=== PATIENT | female | born 1955 | race Caucasian/White ===

== ENCOUNTER 2017-11-23 09:23 | Day surgery (SDC) | payer BC, MEDICARE ==
[~2017-11-23 09:23] MED LIST: Lactated Ringers 1,000 ML IV SCH; Sodium Chloride 0.9% 10 ML Syringe FLUSH PRN; Sodium Chloride 0.9% 2.5 ML Syringe FLUSH PRN
--- NOTE | 2017-11-23 10:11 | PCM.PREANE ---
Preanesthetic Assessment - Anesthesia/Transfusion/Family Hx Anesthesia History: Prior Anesthesia Without Reaction Family History of Anesthesia Reaction: No Transfusion History: Unknown Intubation History: Unknown - Review of Systems General: No Symptoms Pulmonary: No Symptoms Cardiovascular: No Symptoms Gastrointestinal: No Symptoms Neurological: No Symptoms Other: Reports: None - Physical Assessment Height: 1.61 m Weight: 122.47 kg ASA Class: 3 Mental Status: Alert & Oriented x3 Airway Class: Mallampati = 3 Dentition: Reports: Normal Dentition Thyro-Mental Finger Breadths: 3 Mouth Opening Finger Breadths: 2 ROM/Head Extension: Limited/Partial Lungs: Clear to Auscultation, Normal Respiratory Effort Cardiovascular: Regular Rate, Regular Rhythm - Allergies Allergies/Adverse Reactions: Allergies Allergy/AdvReac Type Severity Reaction Status Date / Time crab Allergy Hives Verified 11/18/17 12:18 - Blood Blood Available: No - Anesthesia Plan Pre-Op Medication Ordered: None - Acknowledgements Anesthesia Type Planned: General Anesthesia Pt an Appropriate Candidate for the Planned Anesthesia: Yes Alternatives and Risks of Anesthesia Discussed w Pt/Guardian: Yes Pt/Guardian Understands and Agrees with Anesthesia Plan: Yes PreAnesthesia Questionnaire HEENT History: Reports: Other (See Below) Other HEENT History: wears glasses Respiratory History: Reports: Asthma, Sleep Apnea Other Respiratory History: CPAP Genitourinary History: Reports: Other (See Below) Other Genitourinary History: hx pyleonephritis [employer] History: Reports: LMP (Approximate): Menopausal Musculoskeletal History: Reports: Osteoarthritis Other Musculoskeletal History: avascular neurcrosis rt talus Endocrine/Metabolic History: Reports: Obesity/BMI 30+ (BMI 47.1= morbid obesity) Hematologic History: Reports: Other (See Below) Other Hematologic History: blood transfusion unknown, "thinks may have had one" - Past Surgical History Head Surgeries/Procedures: Reports: None HEENT Surgical History: Reports: Naso-Sinus Surgery Female Surgical History: Reports: Breast Biopsy, Section (x2), Other (See Below) Other Female Surgeries/Procedures: hx recto/vaginal fistula repair x3 Musculoskeletal Surgical History: Reports: Hip Replacement Other Musculoskeletal Surgeries/Procedures:: hx left hip replacement Oncologic Surgical History: Reports: Biopsy of Breast (left) - SUBSTANCE USE Smoking Status *Q: Never Smoker Recreational Drug Use History: No - HOME MEDS Home Medications: Home Meds Albuterol [Proventil] 3 ml NEB ASDIRECTED PRN 11/18/17 [History] Albuterol [Ventolin HFA] 2 puff INH ASDIRECTED PRN 11/18/17 [History] Fluticasone/Salmeterol [Advair 500-50] 1 puff INH BID 11/18/17 [History] Multivitamin [Multivitamins] 1 tab PO DAILY 11/18/17 [History] - CURRENT (IN HOUSE) MEDS Current Meds: Current Medications Lactated Ringer's (Ringers, Lactated) 1,000 mls @ 125 mls/hr IV ASDIRECTED [facility] Last Admin: 11/23/17 10:03 Dose: 125 mls/hr Sodium Chloride (Saline Flush) 10 ml FLUSH ASDIRECTED PRN PRN Reason: Keep Vein Open Sodium Chloride (Saline Flush) 2.5 ml FLUSH ASDIRECTED PRN PRN Reason: Keep Vein Open
[2017-11-23] MEDS ORDERED: Propofol 200 MG/20 ML SDV ONE (10:16)
[2017-11-23] MEDS ORDERED: Midazolam 1 MG/ML 2 ML SDV ONE (10:17)
[2017-11-23] MEDS ORDERED: fentaNYL 100 MCG/2 ML SDV ONE (10:17)
[2017-11-23] MEDS ORDERED: Ondansetron 4 MG/2 ML SDV ONE (10:18)
[2017-11-23] MEDS ORDERED: Dexamethasone 4 MG/ML 5 ML MDV ONE (10:18)
[2017-11-23] MEDS ORDERED: Succinylcholine/Normal Saline 200 MG/10 ML Syringe ONE (10:30)
[2017-11-23] MEDS ORDERED: Rocuronium 10 MG/ML 10 ML Syringe ONE (10:30)
[2017-11-23] MEDS ORDERED: fentaNYL 100 MCG/2 ML SDV IVPUSH PRN (11:30)
[2017-11-23] MEDS ORDERED: ePHEDrine 50 MG/ML SDV ONE (11:57)
[2017-11-23] MEDS ORDERED: Albuterol/Ipratropium 3.0-0.5 MG/3 ML Neb Soln NEB ONE ×3 (13:01→15:38)
--- NOTE | 2017-11-23 13:02 | PCM.OPNOTE ---
- General Post-Op/Procedure Note Date of Surgery/Procedure: 11/23/17 Operative Procedure(s): Operative hysteroscopy/polypectomy x 2/dilation and curettage/pap smear Findings: 2 small cornual polyps, one along left side, the other in the right ostia-- otherwise, thin atrophic endometrium Pre Op Diagnosis: Postmenopausal bleeding Post-Op Diagnosis: Same Anesthesia Technique: General ET Tube Primary Surgeon: Milagro Fuentes Pathology: polyp x 2, endometrial curretings, pap smear Fluid Replacement, Intraop: 1,000 (fluid deficit hysteroscope ~2000 mL) EBL in mLs: 15 Complications: none known Condition: Good Free Text/Narrative:: Dictation [id number]
--- NOTE | 2017-11-23 13:31 | PCM.POSTAN ---
POST ANESTHESIA ASSESSMENT - MENTAL STATUS Mental Status: Alert, Oriented - RESPIRATORY Respiratory Status: Respiratory Rate WNL, Airway Patent, O2 Saturation Stable, Supplemental Oxygen - CARDIOVASCULAR CV Status: Pulse Rate WNL, Blood Pressure Stable - GASTROINTESTINAL GI Status: No Symptoms - PAIN Pain Score: 6 - POST OP HYDRATION Hydration Status: Adequate & Stable - OBSERVATIONS Free Text/Narrative:: no anesthesia problems
--- NOTE | 2017-11-23 18:00 | PCM48HPAN ---
Post Anesthesia Note - EVALUATION WITHIN 48HRS OF ANESTHETIC Vital Signs in Normal Range: No (sats decrease with activity. ) Patient Participated in Evaluation: Yes Respiratory Function Stable: No (on Bipap and o2 to maintain sats) Airway Patent: Yes Cardiovascular Function Stable: Yes Hydration Status Stable: Yes Pain Control Satisfactory: Yes Nausea and Vomiting Control Satisfactory: Yes Mental Status Recovered: Yes Resp Rate: 22 - COMMENTS/OBSERVATIONS Free Text/Narrative:: Dr. Fuentes updated. Going to floor for continued care and hospitalist will be consulted.
[2017-11-23] MEDS ORDERED: Albuterol/Ipratropium 3.0-0.5 MG/3 ML Neb Soln NEB PRN (19:23)
--- NOTE | 2017-11-23 19:40 | PCM.CONS ---
H&P History of Present Illness - General Date of Service: 11/23/17 Admit Problem/Dx: Admission Diagnosis/Problem Admission Diagnosis/Problem Postmenopausal bleeding Source of Information: Patient History Limitations: Reports: No Limitations - History of Present Illness Initial Comments - Free Text/Narative: This is a 62-year-old female who is under the care of Dr. Faria [employer] who had a hysteroscopic today and was found to be desaturating subsequent to the procedure. We have been consult that secondary to her desaturations. Patient has a significant past medical history of asthma for which she is on Advair 500- 50 twice a day along with Ventolin and albuterol nebulizer. Patient also states that she feels all right right now and does not feel like she is is in any sort of respiratory compromise/acute asthma exacerbation. However she is on 2 L of O2 saturating 90-92%. Patient states that about 2 weeks prior to her got sick with similar flulike symptoms including myalgia, elevated fevers and chills, cough and congestion and she also developed similar symptoms which resolved about a week and a half ago however she still has some of the post viral issues. She did not inform anybody of her viral illness nor did she get that assessed. Presently the patient does not complain of any fevers, chills, nausea, vomiting , shortness of breath. - Related Data Allergies/Adverse Reactions: Allergies Allergy/AdvReac Type Severity Reaction Status Date / Time crab Allergy Hives Verified 11/18/17 12:18 Home Medications: Home Meds Albuterol [Proventil] 3 ml NEB ASDIRECTED PRN 11/18/17 [History] Albuterol [Ventolin HFA] 2 puff INH ASDIRECTED PRN 11/18/17 [History] Fluticasone/Salmeterol [Advair 500-50] 1 puff INH BID 11/18/17 [History] Multivitamin [Multivitamins] 1 tab PO DAILY 11/18/17 [History] Past Medical History HEENT History: Reports: Other (See Below) Other HEENT History: wears glasses Respiratory History: Reports: Asthma, Sleep Apnea Other Respiratory History: CPAP Genitourinary History: Reports: Other (See Below) Other Genitourinary History: hx pyleonephritis [employer] History: Reports: Musculoskeletal History: Reports: Osteoarthritis Other Musculoskeletal History: avascular neurcrosis rt talus Endocrine/Metabolic History: Reports: Obesity/BMI 30+ (BMI 47.1= morbid obesity) Hematologic History: Reports: Other (See Below) Other Hematologic History: blood transfusion unknown, "thinks may have had one" - Past Surgical History Head Surgeries/Procedures: Reports: None HEENT Surgical History: Reports: Naso-Sinus Surgery Female Surgical History: Reports: Breast Biopsy, Section (x2), Other (See Below) Other Female Surgeries/Procedures: hx recto/vaginal fistula repair x3 Musculoskeletal Surgical History: Reports: Hip Replacement Other Musculoskeletal Surgeries/Procedures:: hx left hip replacement Oncologic Surgical History: Reports: Biopsy of Breast (left) Social & Family History - Tobacco Use Smoking Status *Q: Never Smoker - Recreational Drug Use Recreational Drug Use: No H&P Review of Systems - Review of Systems: Review Of Systems: ROS reveals no pertinent complaints other than HPI. Exam - Exam Exam: See Below - Vital Signs Vital Signs: Last Vital Signs Temp 36.3 C 11/23/17 13:30 Pulse 94 11/23/17 15:00 Resp 22 H 11/23/17 18:00 BP 144/74 H 11/23/17 15:00 Pulse Ox 91 L 11/23/17 15:00 Weight: 122.47 kg - Exam Quality Assessment: Supplemental Oxygen General: Alert, Oriented, Cooperative HEENT: Conjunctiva Clear Neck: Supple, Trachea Midline Lungs: Wheezing Cardiovascular: Regular Rate, Regular Rhythm GI/Abdominal Exam: Normal Bowel Sounds - Patient Data Lab Results Last 24 hrs: Laboratory Results - last 24 hr 11/23/17 Range/Units 10:05 WBC 7.35 (4.0-11.0) K/uL RBC 4.63 (4.30-5.90) M/uL Hgb 14.5 (12.0-16.0) g/dL Hct 44.2 (36.0-46.0) % MCV 95.5 (80.0-98.0) fL MCH 31.3 (27.0-32.0) pg MCHC 32.8 (31.0-37.0) g/dL RDW Std Deviation 48.5 (28.0-62.0) fl RDW Coeff of Rose Mary 14 (11.0-15.0) % Plt Count 232 (150-400) K/uL MPV 9.70 (7.40-12.00) fL Nucleated RBC % 0.0 /100WBC Nucleated RBCs # 0 K/uL Result Diagrams: 11/23/17 10:05 Consult PN Assessment/Plan Procedures: Procedures COMP SCREEN MAMMOGRAM ADD-ON (02/05/15) OFFICE/OUTPATIENT VISIT EST (02/05/15) OFFICE/OUTPATIENT VISIT EST (01/31/15) X-RAY EXAM OF ANKLE (07/24/16) Problem List Initiated/Reviewed/Updated: Yes My Orders Last 24 Hours: My Active Orders 11/23/17 19:23 Albuterol/Ipratropium [DuoNeb 3.0-0.5 MG/3 ML] 3 ml NEB Q4HRRT PRN 11/23/17 19:28 Chest 1V Frontal [CR] Routine 11/23/17 19:31 RT Aerosol Therapy [RC] ASDIRECTED 11/23/17 21:00 Fluticasone/Salmeterol [Advair Diskus 500-50] 1 puff INH BID Requesting Provider: Dr. Chhaya Fuentes Date Consult Requested: 11/23/17 Reason for Consult: Oxygen desaturation asthma assessment Patient History Reviewed: Yes Admission H&P Reviewed: Yes Consult Result/Summary:: Based on the patient's current respiratory status, the fact that she is on 2 years of oxygen saturating 90-92% and her recent viral illness 2 days prior we shall be getting a chest x-ray just to rule out any acute respiratory process, putting the patient on duo nebs every 4 hours when necessary for wheezing, restarted the patient's home Advair. We shall discuss with Dr. Fuentes as far as the need for systemic steroids and its possible complication with the healing process of the procedure the patient just started. Shall continue to follow and assess the patient's respiratory status.
[2017-11-23] MEDS: Fluticasone/Salmeterol 500-50 MCG Inhalation Powder 14/Diskus INH SCH (20:17)
[2017-11-23 20:20] LABS: CHLORIDE,CL 107 mmol/L (98-110); SODIUM,NA 140 mmol/L (136-146)
[2017-11-23] MEDS ORDERED: predniSONE 20 MG Tab PO ONE (21:00)
[2017-11-24] MEDS: Fluticasone/Salmeterol 500-50 MCG Inhalation Powder 14/Diskus INH SCH (06:08)
--- NOTE | 2017-11-24 08:12 | PCM.SURGPN ---
- General Info Date of Service: 11/24/17 POD#: 1 Functional Status: Reports: Pain Controlled, Tolerating Diet, Urinating - Review of Systems General: Denies: Fever HEENT: Reports: No Symptoms Pulmonary: Reports: Cough. Denies: Pleuritic Chest Pain Cardiovascular: Denies: Chest Pain, Palpitations Gastrointestinal: Denies: Abdominal Pain, Nausea Genitourinary: Denies: Flank Pain Musculoskeletal: Reports: No Symptoms Skin: Reports: No Symptoms Neurological: Reports: No Symptoms Psychiatric: Reports: No Symptoms - Patient Data Vitals - Most Recent: Last Vital Signs Temp 36.3 C 11/24/17 05:00 Pulse 82 11/24/17 05:00 Resp 20 11/24/17 05:00 BP 128/68 11/24/17 05:00 Pulse Ox 92 L 11/24/17 05:00 Weight - Most Recent: 122.47 kg I&O - Last 24 Hours: Intake & Output 11/23/17 11/24/17 11/24/17 22:59 06:59 14:59 Intake Total 600 1150 Output Total 2000 Balance 600 -850 Lab Results Last 24 Hrs: Laboratory Results - last 24 hr 11/23/17 11/23/17 Range/Units 10:05 19:50 WBC 7.35 (4.0-11.0) K/uL RBC 4.63 (4.30-5.90) M/uL Hgb 14.5 (12.0-16.0) g/dL Hct 44.2 (36.0-46.0) % MCV 95.5 (80.0-98.0) fL MCH 31.3 (27.0-32.0) pg MCHC 32.8 (31.0-37.0) g/dL RDW Std Deviation 48.5 (28.0-62.0) fl RDW Coeff of Rose Mary 14 (11.0-15.0) % Plt Count 232 (150-400) K/uL MPV 9.70 (7.40-12.00) fL Nucleated RBC % 0.0 /100WBC Nucleated RBCs # 0 K/uL Sodium 140 (136-146) mmol/L Potassium 4.3 (3.5-5.1) mmol/L Chloride 107 (98-110) mmol/L Carbon Dioxide 24 (21-31) mmol/L BUN 10 (6.0-23.0) mg/dL Creatinine 0.7 (0.6-1.5) mg/dL Est Cr Clr Drug Dosing 71.35 mL/min Estimated GFR (MDRD) > 60.0 ml/min Glucose 140 H (60-110) mg/dL Calcium 8.8 (8.8-10.8) mg/dL Med Orders - Current: Current Medications Albuterol/Ipratropium (Duoneb 3.0-0.5 Mg/3 Ml) 3 ml NEB Q4HRRT PRN PRN Reason: Wheezing Fentanyl (Sublimaze) 50 mcg IVPUSH Q5M PRN PRN Reason: Pain (moderate 4-6) Stop: 11/24/17 14:00 Lactated Ringer's (Ringers, Lactated) 1,000 mls @ 125 mls/hr IV ASDIRECTED [facility] Last Admin: 11/23/17 10:03 Dose: 125 mls/hr Fluticasone/Salmeterol (Advair Diskus 500-50) 0 puff INH BIDRT [facility] Last Admin: 11/24/17 06:08 Dose: 1 puff Sodium Chloride (Saline Flush) 10 ml FLUSH ASDIRECTED PRN PRN Reason: Keep Vein Open Sodium Chloride (Saline Flush) 2.5 ml FLUSH ASDIRECTED PRN PRN Reason: Keep Vein Open Discontinued Medications Albuterol/Ipratropium (Duoneb 3.0-0.5 Mg/3 Ml) 3 ml NEB ONETIME ONE Stop: 11/23/17 13:02 Last Admin: 11/23/17 13:11 Dose: 3 ml Albuterol/Ipratropium (Duoneb 3.0-0.5 Mg/3 Ml) 3 ml NEB ONETIME ONE Stop: 11/23/17 14:18 Last Admin: 11/23/17 14:34 Dose: 3 ml Albuterol/Ipratropium (Duoneb 3.0-0.5 Mg/3 Ml) 3 ml NEB ONETIME ONE Stop: 11/23/17 15:39 Last Admin: 11/23/17 15:44 Dose: 3 ml Dexamethasone (Dexamethasone) Confirm Administered Dose 20 mg .ROUTE .STK-MED ONE Stop: 11/23/17 10:19 Ephedrine Sulfate (Ephedrine Sulfate) Confirm Administered Dose 50 mg .ROUTE .STK-MED ONE Stop: 11/23/17 11:58 Fentanyl (Sublimaze) Confirm Administered Dose 100 mcg .ROUTE .STK-MED ONE Stop: 11/23/17 10:18 Lidocaine HCl (Xylocaine-Mpf 1%) Confirm Administered Dose 5 ml .ROUTE .STK-MED ONE Stop: 11/23/17 10:19 Midazolam HCl (Versed 1 Mg/Ml) Confirm Administered Dose 2 mg .ROUTE .STK-MED ONE Stop: 11/23/17 10:18 Ondansetron HCl (Zofran) Confirm Administered Dose 4 mg .ROUTE .STK-MED ONE Stop: 11/23/17 10:19 Prednisone (Prednisone) 40 mg PO ONETIME ONE Stop: 11/23/17 21:01 Last Admin: 11/23/17 21:22 Dose: 40 mg Propofol (Diprivan 20 Ml) Confirm Administered Dose 200 mg .ROUTE .STK-MED ONE Stop: 11/23/17 10:17 Rocuronium Central (Zemuron) Confirm Administered Dose 100 mg .ROUTE .STK-MED ONE Stop: 11/23/17 10:31 Succinylcholine Chloride (Succinylcholine In Ns Pf) Confirm Administered Dose 200 mg .ROUTE .STK-MED ONE Stop: 11/23/17 10:31 - Exam General: Alert Lungs: Wheezing Cardiovascular: Regular Rate, Regular Rhythm GI/Abdominal Exam: Normal Bowel Sounds, Soft Extremities: No: Amy's Sign - Problem List & Annotations (1) Postmenopausal bleeding SNOMED Code(s): 82833988 Code(s): N95.0 - POSTMENOPAUSAL BLEEDING Status: Acute Current Visit: Yes - Problem List Review Problem List Initiated/Reviewed/Updated: Yes - My Orders Last 24 Hours: Active Orders 24 hr Category Date Time Status Notify Provider Consults [RC] ASDIRECTED Care 11/23/17 18:07 Active RT Aerosol Therapy [RC] ASDIRECTED Care 11/23/17 19:31 Active Ready for Discharge [RC] PER UNIT ROUTINE Care 11/23/17 12:54 Active Consult to Physician [CONS] Routine Cons 11/23/17 18:06 Active Regular Diet [DIET] Diet 11/24/17 Breakfast Active Chest 1V Frontal [CR] Routine Exams 11/23/17 19:28 Taken Albuterol/Ipratropium [DuoNeb 3.0-0.5 MG/3 ML] Med 11/23/17 19:23 Active 3 ml NEB Q4HRRT PRN Fluticasone/Salmeterol [Advair Diskus 500-50] Med 11/23/17 21:00 Active 0 puff INH BIDRT fentaNYL [Sublimaze] Med 11/23/17 11:30 Active 50 mcg IVPUSH Q5M PRN Medication Orders Albuterol/Ipratropium (Duoneb 3.0-0.5 Mg/3 Ml) 3 ml NEB Q4HRRT PRN PRN Reason: Wheezing Fentanyl (Sublimaze) 50 mcg IVPUSH Q5M PRN PRN Reason: Pain (moderate 4-6) Stop: 11/24/17 14:00 Lactated Ringer's (Ringers, Lactated) 1,000 mls @ 125 mls/hr IV ASDIRECTED [facility] Last Admin: 11/23/17 10:03 Dose: 125 mls/hr Fluticasone/Salmeterol (Advair Diskus 500-50) 0 puff INH BIDRT [facility] Last Admin: 11/24/17 06:08 Dose: 1 puff Admin: 11/23/17 20:17 Dose: 1 puff Sodium Chloride (Saline Flush) 10 ml FLUSH ASDIRECTED PRN PRN Reason: Keep Vein Open Sodium Chloride (Saline Flush) 2.5 ml FLUSH ASDIRECTED PRN PRN Reason: Keep Vein Open - Assessment Assessment (Free Text/Narrative):: POD 1 status post hysteroscopy/polypectomy Post operative respiratory issues - Plan Plan (Free Text/Narrative):: Given patient's relative hypoxemia, and recent general anesthesia--felt it was safest to monitor through the night on CPAP. Dr Gomez is also consulting and managing her respiratory findings. Patient felt she rested well. She is feeling well this morning. She denies abdominal pain, vaginal bleeding is scant. Explained intraop findings. She is doing well from a hysteroscopy standpoint. Will await Dr Gomez's disposition for today, am anticipating discharge later.
[2017-11-24] MEDS ORDERED: Albuterol 8 GM Inhaler INH PRN (08:26)
[2017-11-24] MEDS ORDERED: Multivitamins with Iron/Calcium/Folic Acid/Minerals Tab PO SCH (09:00)
--- NOTE | 2017-11-24 10:22 | PCM.CONSN ---
- General Info Date of Service: 11/24/17 Admission Dx/Problem (Free Text): Admission Diagnosis/Problem Admission Diagnosis/Problem Postmenopausal bleeding. asthma Subjective Update: Martha sánchez in the chair eating breakfast, reports she is doing well this morning. She is currently on RA sating mid 90s and denies chest pain or SOB. Has normal SOB with ambulation but is feeling well and asking about discharge home. Functional Status: Reports: Pain Controlled, Tolerating Diet, Ambulating, Urinating - Review of Systems HEENT: Reports: No Symptoms. Denies: Headaches, Sore Throat, Visual Changes Pulmonary: Reports: Wheezing (intermittently, but at baseline. No more than normal). Denies: Shortness of Breath, Cough, Sputum Cardiovascular: Reports: No Symptoms. Denies: Chest Pain, Palpitations Gastrointestinal: Reports: No Symptoms. Denies: Abdominal Pain, Nausea, Vomiting Neurological: Reports: No Symptoms. Denies: Confusion Psychiatric: Reports: No Symptoms. Denies: Confusion - Patient Data Vitals - Most Recent: Last Vital Signs Temp 98.1 F 11/24/17 08:00 Pulse 92 11/24/17 08:00 Resp 18 11/24/17 08:00 BP 116/57 L 11/24/17 08:00 Pulse Ox 93 L 11/24/17 08:00 Weight - Most Recent: 122.47 kg I&O - Last 24 Hours: Intake & Output 11/23/17 11/24/17 11/24/17 22:59 06:59 14:59 Intake Total 600 1150 Output Total 2000 Balance 600 -850 Lab Results Last 24 Hours: Laboratory Results - last 24 hr 11/23/17 Range/Units 19:50 Sodium 140 (136-146) mmol/L Potassium 4.3 (3.5-5.1) mmol/L Chloride 107 (98-110) mmol/L Carbon Dioxide 24 (21-31) mmol/L BUN 10 (6.0-23.0) mg/dL Creatinine 0.7 (0.6-1.5) mg/dL Est Cr Clr Drug Dosing 71.35 mL/min Estimated GFR (MDRD) > 60.0 ml/min Glucose 140 H (60-110) mg/dL Calcium 8.8 (8.8-10.8) mg/dL Med Orders - Current: Current Medications Albuterol (Ventolin Hfa) 0 gm INH ASDIRECTED PRN PRN Reason: Shortness of Breath Last Admin: 11/24/17 09:43 Dose: 2 puff Albuterol/Ipratropium (Duoneb 3.0-0.5 Mg/3 Ml) 3 ml NEB Q4HRRT PRN PRN Reason: Wheezing Fentanyl (Sublimaze) 50 mcg IVPUSH Q5M PRN PRN Reason: Pain (moderate 4-6) Stop: 11/24/17 14:00 Lactated Ringer's (Ringers, Lactated) 1,000 mls @ 125 mls/hr IV ASDIRECTED [facility] Last Admin: 11/23/17 10:03 Dose: 125 mls/hr Multivitamins/Minerals (Thera M Plus) 1 tab PO DAILY [facility] Last Admin: 11/24/17 09:43 Dose: 1 tab Fluticasone/Salmeterol (Advair Diskus 500-50) 0 puff INH BIDRT [facility] Last Admin: 11/24/17 06:08 Dose: 1 puff Sodium Chloride (Saline Flush) 10 ml FLUSH ASDIRECTED PRN PRN Reason: Keep Vein Open Sodium Chloride (Saline Flush) 2.5 ml FLUSH ASDIRECTED PRN PRN Reason: Keep Vein Open Discontinued Medications Albuterol/Ipratropium (Duoneb 3.0-0.5 Mg/3 Ml) 3 ml NEB ONETIME ONE Stop: 11/23/17 13:02 Last Admin: 11/23/17 13:11 Dose: 3 ml Albuterol/Ipratropium (Duoneb 3.0-0.5 Mg/3 Ml) 3 ml NEB ONETIME ONE Stop: 11/23/17 14:18 Last Admin: 11/23/17 14:34 Dose: 3 ml Albuterol/Ipratropium (Duoneb 3.0-0.5 Mg/3 Ml) 3 ml NEB ONETIME ONE Stop: 11/23/17 15:39 Last Admin: 11/23/17 15:44 Dose: 3 ml Dexamethasone (Dexamethasone) Confirm Administered Dose 20 mg .ROUTE .STK-MED ONE Stop: 11/23/17 10:19 Ephedrine Sulfate (Ephedrine Sulfate) Confirm Administered Dose 50 mg .ROUTE .STK-MED ONE Stop: 11/23/17 11:58 Fentanyl (Sublimaze) Confirm Administered Dose 100 mcg .ROUTE .STK-MED ONE Stop: 11/23/17 10:18 Lidocaine HCl (Xylocaine-Mpf 1%) Confirm Administered Dose 5 ml .ROUTE .STK-MED ONE Stop: 11/23/17 10:19 Midazolam HCl (Versed 1 Mg/Ml) Confirm Administered Dose 2 mg .ROUTE .STK-MED ONE Stop: 11/23/17 10:18 Ondansetron HCl (Zofran) Confirm Administered Dose 4 mg .ROUTE .STK-MED ONE Stop: 11/23/17 10:19 Prednisone (Prednisone) 40 mg PO ONETIME ONE Stop: 11/23/17 21:01 Last Admin: 11/23/17 21:22 Dose: 40 mg Propofol (Diprivan 20 Ml) Confirm Administered Dose 200 mg .ROUTE .STK-MED ONE Stop: 11/23/17 10:17 Rocuronium [place] (Zemuron) Confirm Administered Dose 100 mg .ROUTE .STK-MED ONE Stop: 11/23/17 10:31 Succinylcholine Chloride (Succinylcholine In Ns Pf) Confirm Administered Dose 200 mg .ROUTE .STK-MED ONE Stop: 11/23/17 10:31 - Exam General: Alert, Oriented, Cooperative, No Acute Distress Neck: Supple Lungs: Clear to Auscultation, Normal Respiratory Effort. No: Wheezing Cardiovascular: Regular Rate, Regular Rhythm GI/Abdominal Exam: Normal Bowel Sounds, Soft, Non-Tender, No Organomegaly, No Distention, No Abnormal Bruit, No Mass, Pelvis Stable Extremities: Normal Inspection, Normal Range of Motion, Non-Tender, No Pedal Edema, Normal Capillary Refill Consult PN Assessment/Plan Procedures: Procedures COMP SCREEN MAMMOGRAM ADD-ON (02/05/15) OFFICE/OUTPATIENT VISIT EST (02/05/15) OFFICE/OUTPATIENT VISIT EST (01/31/15) X-RAY EXAM OF ANKLE (07/24/16) (1) Asthma SNOMED Code(s): 049431006 Code(s): J45.909 - UNSPECIFIED ASTHMA, UNCOMPLICATED Current Visit: Yes Problem List Initiated/Reviewed/Updated: Yes My Orders Last 24 Hours: My Active Orders 11/24/17 08:26 Albuterol [Ventolin HFA] 0 gm INH ASDIRECTED PRN 11/24/17 09:00 Multivitamins w-Iron/Ca/FA/Min [Thera M Plus] 1 tab PO DAILY Plan: This 62 year old female monitored post-operatively due to destaurations. This morning she is doing well. Satting 92-94% on RA. She is feeling back to normal. Will continue Prednisone 50 mg daily for 3 more days, prescription sent to pharmacy by Dr Gomez last evening. Ok to discharge via Hospitalist stand point.
--- NOTE | 2017-11-24 11:42 | OR ---
SURGEON: Milagro Fuentes M.D. DATE OF PROCEDURE: 11/23/2017 PREOPERATIVE DIAGNOSIS: Postmenopausal bleeding. POSTOPERATIVE DIAGNOSIS: Postmenopausal bleeding. PROCEDURES: Operative hysteroscopy with polypectomy, dilation and curettage of endometrium, Pap smear. ANESTHESIA: General endotracheal anesthesia. FLUIDS: 1000 mL of crystalloid. FLUID DEFICIT: 2000 mL of normal saline. COMPLICATIONS: None. FINDINGS: Overall normal-appearing uterine cavity with a small polyp along the left cornua and another polyp noted within the right ostia. The remainder of the endometrium appeared thin and atrophic. DISPOSITION: The patient to PACU in fair condition. SPECIMENS: Pathology. PROCEDURE IN DETAIL: Kiarra is a 62-year-old, postmenopausal female, who has had ongoing difficulty with postmenopausal bleeding. An endometrial biopsy was performed in office revealed an endometrial polyp along the endocervix, and the exam was very uncomfortable and very difficult from a physical standpoint, given her body habitus; therefore, in order to further evaluate the endometrial cavity, have opted to proceed with hysteroscopy. Pap smear will also be obtained of the patient. The patient agreed to the procedure. The proper consent was obtained. The patient was taken to the operating room where she underwent general endotracheal anesthesia and was placed in modified dorsolithotomy position, prepped and draped in the usual sterile fashion. The bladder was drained. Time - out was performed. A Graves speculum was able to be introduced, and the cervix was visualized with difficulty. The anterior lip was grasped with a single-tooth tenaculum, after Pap smear was obtained. The cervix now gently dilated to 7 mm. A MyoSure hysteroscope was introduced using normal saline as distention media. Was able to introduce into the uterine cavity. The uterine cavity reveals 2 fairly small polyps, one along the left cornua and one along the right ostia. The MyoSure was introduced and polypectomy was performed along the left side; however, the one along the right ostia was very difficult to obtain with the MyoSure; therefore, this was removed. A hysteroscopic-directed grasper was introduced and was able to remove it with the hysteroscopic grasper. Specimen sent to pathology. Photograph was taken of the cavity. The hysteroscope was removed, and gentle curettage was now performed. The tenaculum was removed from the cervix. The cervix inspected and found to be hemostatic. The procedure was difficult overall, just due to body habitus-- but overall visualization was good and was able to retrieve the specimens as anticipated. Sponge count and instrument count were correct x2. The instruments were removed from the vagina. Hemostasis appeared evident. The patient will go to PACU in stable condition. KIRAN NEELY /[id number] MTDD
--- NOTE | 2017-11-24 15:08 | CR ---
EXAM DATE: 11/23/17 PATIENT'S AGE: 62 Patient: ASHLEY PACHECO Facility: [place], [place] Site . Site : [id number] Study: XRay Chest [id number]/[id number] 8:02:16 PM Ordering Physician: Gina Humphrey Final Report: HISTORY: Wheezing. FINDINGS: AP chest radiograph is suboptimal secondary to underpenetration. Cardiac silhouette is acceptable size. No cephalization is seen. Question patchy infiltrate in the right upper lobe, left mid lung. No definite pleural effusion is seen. IMPRESSION: 1. Exam limited due to technique. 2. Questionable minimal infiltrate lateral to the left hilum and in the right upper lobe. Dictated by Alexa Vazquez MD @ 11/23/2017 8:13:21 PM Dictated by: Alexa Vazquez MD @ 11/23/2017 20:13:30 (Electronic Signature) Report Signed by Proxy. MINOO
== END 2017-11-24 11:20 | disposition home or self-care (01) ==
LOC: MW.SDS 09:23 → MW.ICU 18:04 → MW.SDS 11-24 11:20
PROVIDERS: ATTEND Obstetrics & Gynecology
DX: N95.0 Postmenopausal bleeding (principal); J45.41 Moderate persistent asthma with (acute) exacerbation; G47.33 Obstructive sleep apnea (adult) (pediatric); Z99.89 Dependence on other enabling machines and devices; Z79.899 Other long term (current) drug therapy; Z87.891 Personal history of nicotine dependence; Z12.4 Encounter for screening for malignant neoplasm of cervix
CPT/HCPCS: 36415; 58558; 71045; 80048; 85027; 88305; 94640; 94660; A9270; G0145; J1100; J2250; J2405; J3010; J7120; 00952; J2704

== ENCOUNTER 2020-03-12 18:03 | Emergency (ER) | payer MEDICARE ==
[2020-03-12] MEDS ORDERED: Diphtheria,Pertussis(Acell),Tetanus Vaccine 0.5 ML Syringe IM ONE (18:16)
[2020-03-12] MEDS ORDERED: Lidocaine 1% with EPINEPHrine 1:100,000 10 ML MDV INJECT ONE (18:17)
--- NOTE | 2020-03-12 18:19 | EDM.PDOC ---
ED HPI GENERAL MEDICAL PROBLEM - General Chief Complaint: Laceration Stated Complaint: CUT ON LT LEG Time Seen by Provider: 03/12/20 18:03 Source of Information: Reports: Patient History Limitations: Reports: No Limitations - History of Present Illness INITIAL COMMENTS - FREE TEXT/NARRATIVE: HISTORY AND PHYSICAL: History of present illness: Patient is a 64-year-old female who presents to the emergency room with complaints of laceration to the left lateral zambrano. She was outside mowing when her leg brushed against a tree branch resulting in the laceration. She was able to control bleeding with a large Band-Aid but felt she may need stitches. Unsure of her last tetanus update. She offers no other bodily injury. Offers no systemic complaints. No history of diabetes. Review of systems: As per history of present illness and below otherwise all systems reviewed and negative. Past medical history: As per history of present illness and as reviewed below otherwise noncontributory. Surgical history: As per history of present illness and as reviewed below otherwise noncontributory. Social history: See social history for further information Family history: As per history of present illness and as reviewed below otherwise noncontributory. Physical exam: General: Well-developed and well-nourished 64-year-old female. Alert and oriented. Nontoxic-appearing and in no acute distress. HEENT: Atraumatic, normocephalic, pupils equal and reactive bilaterally, negative for conjunctival pallor or scleral icterus, mucous membranes moist, TMs normal bilaterally, throat clear, neck supple, nontender, trachea midline. No drooling or trismus noted. No meningeal signs. No hot potato voice noted. Lungs: Clear to auscultation, breath sounds equal bilaterally, chest nontender. Heart: S1S2, regular rate and rhythm without overt murmur Abdomen: Soft, nondistended, nontender. Skin: 2.5 cm x 2.5 cm "V" shaped laceration to left lateral zambrano. Remaining skin is intact, warm, dry. No lesions or rashes noted. Extremities: Atraumatic, moves all extremities per self without difficulty or deficits, negative for cords or calf pain. Neurovascular unremarkable. Neuro: Awake, alert, oriented. Cranial nerves II through XII unremarkable. Cerebellum unremarkable. Motor and sensory unremarkable throughout. Exam nonfocal. Notes: [place], does not have easy access back to our facility. Will use dissolvable suture. 1% lidocaine was used to anesthetize the area. Chlorhexidine and wound wash was used to cleanse the area. 4-0 Chromic, #6 interrupted sutures were placed. Patient tolerated well. There is slight tension at the tip of the "V" and will reinforce with Steri-Strips. We reviewed signs and symptoms that would prompt her to return to the emergency room. Supportive care measures were reviewed and discussed. Voices understanding and is agreeable to plan of care. Denies any further questions or concerns at this time. Diagnostics: None Therapeutics: Lidocaine with epi, Steri-Strips Prescription: None Impression: Laceration Plan: 1. Keep the area clean and dry. Continue to monitor for signs of infection. Sutures will dissolve on their own. Please do not pull the Steri-Strips off as they will start to peel on their own, you can trim the edges if needed. Otherwise keep the area covered when wearing shorts or outside. 2. Tylenol and/or ibuprofen as needed for pain management. 3. Please follow-up with your primary care provider in the next 1-2 days. Return to the ED as needed and as discussed. Definitive disposition and diagnosis as appropriate pending reevaluation and review of above. - Related Data Allergies Allergy/AdvReac Type Severity Reaction Status Date / Time crab Allergy Hives Verified 03/12/20 18:21 Home Meds: Home Meds Albuterol [Proventil] 3 ml NEB ASDIRECTED PRN 11/18/17 [History] Albuterol [Ventolin HFA] 2 puff INH ASDIRECTED PRN 11/18/17 [History] Fluticasone/Salmeterol [Advair 500-50] 1 puff INH BID 11/18/17 [History] Multivitamin [Multivitamins] 1 tab PO DAILY 11/18/17 [History] Past Medical History HEENT History: Reports: Other (See Below) Other HEENT History: wears glasses Respiratory History: Reports: Asthma, Sleep Apnea Other Respiratory History: CPAP Genitourinary History: Reports: Other (See Below) Other Genitourinary History: hx pyleonephritis 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: Musculoskeletal History: Reports: Osteoarthritis Other Musculoskeletal History: avascular neurcrosis rt talus Endocrine/Metabolic History: Reports: Obesity/BMI 30+ (BMI 47.1= morbid obesity) Hematologic History: Reports: Other (See Below) Other Hematologic History: blood transfusion unknown, "thinks may have had one" - Past Surgical History Head Surgeries/Procedures: Reports: None HEENT Surgical History: Reports: Naso-Sinus Surgery Female Surgical History: Reports: Breast Biopsy, Section (x2), Other (See Below) Other Female Surgeries/Procedures: hx recto/vaginal fistula repair x3 Musculoskeletal Surgical History: Reports: Hip Replacement Other Musculoskeletal Surgeries/Procedures:: hx left hip replacement Oncologic Surgical History: Reports: Biopsy of Breast (left) ED ROS GENERAL - Review of Systems Review Of Systems: Comprehensive ROS is negative, except as noted in HPI. ED EXAM, SKIN/RASH Exam: See Below (See dictation) ED SKIN PROCEDURES - Laceration/Wound Repair Left zambrano Appearance: Subcutaneous Distal NVT: Neuro & Vascular Intact, No Tendon Injury Anesthetic Type: Local Local Anesthesia - Lidocaine (Xylocaine): 1% with EPI Local Anesthetic Volume: 4cc Skin Prep: Chlorhexidine (Hibiciens), Providone-Iodine (Betadine) Saline Irrigation (cc's): 100 Exploration/Debridement/Repair: Wound Explored, In a Bloodless Field, Explored to Base, No Foreign Material Found Closed with: Sutures, Steri-Strips Lac/Wound length In cm: 5 (2.5cm x 2.5 cm) Suture Size: 4-0 Suture Type: Interrupted (Chromic), Simple Drain Placement: No Sterile Dressing Applied: Provider Tetanus Status Addressed: Yes (States it has been within 5 years) Complications: No Course - Vital Signs Last Recorded V/S: Last Vital Signs Temp 97.4 F 03/12/20 18:17 Pulse 72 03/12/20 18:17 Resp 16 03/12/20 18:17 BP 190/78 H 03/12/20 18:17 Pulse Ox 95 03/12/20 18:17 - Orders/Labs/Meds Orders: Active Orders 24 hr Category Date Time Status Vaccines to be Administered [RC] PER UNIT ROUTINE Care 03/12/20 18:17 Active Meds: Medications Discontinued Medications Generic Name Dose Route Start Last Admin Trade Name Freq PRN Reason Stop Dose Admin Diphtheria/Tetanus/Acell Pertussis 0.5 ml 03/12/20 18:16 03/12/20 18:37 Adacel IM 03/12/20 18:17 Not Given .ONCE ONE Lidocaine/Epinephrine 10 ml 03/12/20 18:17 03/12/20 18:27 Xylocaine 1% With Epinephrine 1:100,000 INJECT 03/12/20 18:18 Not Given ONETIME ONE Lidocaine/Epinephrine Confirm 03/12/20 18:20 03/12/20 18:24 Xylocaine 1% With Epinephrine 1:100,000 Administered 03/12/20 18:21 Not Given Dose 20 ml .ROUTE .STK-MED ONE Lidocaine/Epinephrine 20 ml 03/12/20 18:25 03/12/20 18:37 Xylocaine 1% With Epinephrine 1:100,000 INJECT 03/12/20 18:26 20 ml ONETIME ONE Administration Departure - Departure Time of Disposition: 18:40 Disposition: Home, Self-Care 01 Clinical Impression: Laceration - Discharge Information Instructions: Laceration Care, Adult, [id number] Referrals: Rao Malloy MD [Primary Care Provider] - Forms: ED Department Discharge Additional Instructions: The following information is given to patients seen in the emergency department who are being discharged to home. This information is to outline your options for follow-up care. We provide all patients seen in our emergency department with a follow-up referral. The need for follow-up, as well as the timing and circumstances, are variable depending upon the specifics of your emergency department visit. If you don't have a primary care physician on staff, we will provide you with a referral. We always advise you to contact your personal physician following an emergency department visit to inform them of the circumstance of the visit and for follow-up with them and/or the need for any referrals to a consulting specialist. The emergency department will also refer you to a specialist when appropriate. This referral assures that you have the opportunity for follow-up care with a specialist. All of these measure are taken in an effort to provide you with optimal care, which includes your follow-up. Under all circumstances we always encourage you to contact your private physician who remains a resource for coordinating your care. When calling for follow-up care, please make the office aware that this follow-up is from your recent emergency room visit. If for any reason you are refused follow-up, please contact the [facility] Emergency Department at and asked to speak to the emergency department charge nurse. LISA [facility] [address] [place] [address] [facility] [address] [place] [address] 1. Keep the area clean and dry. Continue to monitor for signs of infection. Sutures will dissolve on their own. Please do not pull the Steri-Strips off as they will start to peel on their own, you can trim the edges if needed. Otherwise keep the area covered when wearing shorts or outside. 2. Tylenol and/or ibuprofen as needed for pain management. 3. Please follow-up with your primary care provider in the next 1-2 days. Return to the ED as needed and as discussed. Sepsis Event Note - Focused Exam Vital Signs: Vital Signs Temp Pulse Resp BP Pulse Ox 03/12/20 18:17 97.4 F 72 16 190/78 H 95 Date Exam was Performed: 03/12/20 Time Exam was Performed: 18:43 - My Orders Last 24 Hours: My Active Orders 03/12/20 18:17 Vaccines to be Administered [RC] PER UNIT ROUTINE - Assessment/Plan Last 24 Hours: My Active Orders 03/12/20 18:17 Vaccines to be Administered [RC] PER UNIT ROUTINE
[2020-03-12] MEDS ORDERED: Lidocaine 1% with EPINEPHrine 1:100,000 20 ML MDV ONE (18:20)
[2020-03-12] MEDS ORDERED: Lidocaine 1% with EPINEPHrine 1:100,000 20 ML MDV INJECT ONE (18:25)
== END 2020-03-12 18:58 | disposition home or self-care (01) ==
LOC: MW.ED 18:03
DX: S81.812A Laceration without foreign body, left lower leg, initial encounter (principal); E66.9 Obesity, unspecified; Z68.42 Body mass index [BMI] 45.0-49.9, adult; Z23 Encounter for immunization; J45.909 Unspecified asthma, uncomplicated; W22.8XXA Striking against or struck by other objects, initial encounter
CPT/HCPCS: 12002; 99282

== ENCOUNTER 2025-06-13 21:35 | Emergency (ER) | payer MEDICARE, OTHER ==
[2025-06-13 22:07] LABS: BASOPHILS ABSOLUTE AUTO 0.08 K/uL (0.00-0.20); BASOPHILS PERCENT AUTO 0.6 % (0.0-1.0); EOSINOPHILS ABSOLUTE AUTO 0.48 K/uL (0.00-0.45); EOSINOPHILS PERCENT AUTO 3.9 % (0.0-6.0); IMMATURE GRAN ABSOLUTE AUTO 0.19 K/uL (0.00-0.05); IMMATURE GRAN PERCENT AUTO 1.5 % (0.0-0.4); LYMPHOCYTES ABSOLUTE AUTO 2.38 K/uL (1.00-4.80); LYMPHOCYTES PERCENT AUTO 19.2 % (24.0-44.0); MEAN PLATELET VOLUME 9.8 fL (9.4-12.3); MONOCYTES ABSOLUTE AUTO 0.91 K/uL (0.00-0.80); MONOCYTES PERCENT AUTO 7.4 % (0.0-8.0); NEUTROPHILS ABSOLUTE AUTO 8.34 K/uL (1.80-7.70); NEUTROPHILS PERCENT AUTO 67.4 % (41.0-71.0); NRBC ABSOLUTE 0.00 K/uL (0.00-0.02); NRBC PERCENT 0.0 /100WBC (0.0-0.2); PLATELET COUNT,PLT 236 K/uL (150-400); RED BLOOD CELL COUNT 4.78 M/uL (4.10-5.30); WHITE BLOOD CELL COUNT,WBC 12.38 K/uL (3.9-11.3)
[2025-06-13 22:28] LABS: BLOOD UREA NITROGEN,BUN 20.0 mg/dL (7.0-18.0); CARBON DIOXIDE,CO2 29.3 mmol/L (21.0-32.0); CHLORIDE,CL 99.0 mmol/L (98-107); CREATININE 1.1 mg/dL (0.6-1.0); EST CRCL DRUG DOSING (CG) 38.71 mL/min; GLUCOSE RANDOM 176.0 mg/dL (74-106); POTASSIUM,K 3.5 mmol/L (3.5-5.1); SODIUM,NA 138.0 mmol/L (136-145)
[2025-06-13 22:30] LABS: ESTIMATED GFR 55.0 mL/min (>60)
[2025-06-13] MEDS: Diltiazem 25 MG/5 ML SDV IVPUSH ONE (22:30)
[2025-06-13] MEDS: Etomidate 2 MG/ML 20 ML SDV IVPUSH ONE (23:52)
== END 2025-06-14 00:50 | disposition home or self-care (01) ==
LOC: MW.ED 21:35
DX: I48.92 Unspecified atrial flutter (principal); I10 Essential (primary) hypertension; J45.909 Unspecified asthma, uncomplicated; E66.9 Obesity, unspecified; Z68.43 Body mass index [BMI] 50.0-59.9, adult; Z91.018 Allergy to other foods; Z79.51 Long term (current) use of inhaled steroids; Z79.01 Long term (current) use of anticoagulants; Z79.899 Other long term (current) drug therapy
CPT/HCPCS: 36415; 80048; 84484; 85025; 92960; 93005; 96374; 99284; J3490; 93010; 99151; J1163